=== PATIENT | male | born 1995 | race Caucasian/White ===

== ENCOUNTER 2022-03-10 16:06 | Emergency (ER) | payer SELFPAY ==
[2022-03-10 17:01] VITALS: TEMP 98.1; BMI 31.3
[2022-03-10] MEDS ORDERED: MIDAZOLAM HCL 2 MG/2 ML SINGLE DOSE VIAL IVPUSH ONE (17:09)
[2022-03-10] MEDS ORDERED: FAMOTIDINE 20 MG/50 ML IVPB 20 MG/50 ML MG IVPB ONE (17:11)
[2022-03-10] MEDS ORDERED: MAG HYDROX/AL HYDROX/SIMETH -MYLANTA- ORAL SUSPENSION PO ONE (17:11)
[2022-03-10] MEDS ORDERED: ONDANSETRON 4 MG TABLET PO ONE (17:12)
[2022-03-10] MEDS ORDERED: ACETAMINOPHEN 1000 MG/100 ML BAG IVPB ONE (17:12)
[2022-03-10] MEDS ORDERED: ONDANSETRON *ODT* 4 MG TABLET ONE (18:01)
[2022-03-10 18:46] LABS: HEMATOCRIT 46.8 % (35.4-49); HEMOGLOBIN 16.3 GM/dL (11.7-16.9); MCH 32.7 pg (25.7-33.7); MCHC 34.9 g/dl (32.0-35.9); MEAN CELL VOLUME 93.6 fl (80-96); MEAN PLT VOLUME 8.6 fl (7.5-11.1); PLATELET COUNT 286 10^3/uL (134-434); RDW 12.7 % (11.9-15.9); WHITE BLOOD COUNT 7.4 K/mm3 (4.0-10.0)
[2022-03-10] MEDS ORDERED: MAG HYDROX/AL HYDROX/SIMETH 30 ML UNIT-DOSE CUP ONE (19:08)
[2022-03-10 19:09] LABS: ALBUMIN 4.2 g/dl (3.4-5.0); CALCIUM 9.5 mg/dL (8.5-10.1)
[2022-03-10 19:10] LABS: BLOOD UREA NITROGEN 14.6 mg/dL (7-18)
[2022-03-10 19:12] LABS: CREATININE 0.8 mg/dL (0.55-1.3)
[2022-03-10 19:14] LABS: TOT PROT 8.5 g/dl (6.4-8.2)
[2022-03-10 19:18] LABS: BILIRUBIN,TOTAL 0.3 mg/dL (0.2-1)
[2022-03-10] MEDS ORDERED: SUCRALFATE 1 GM/10 ML UNIT DOSE CUPS PO ONE (22:56)
[2022-03-11 00:32] VITALS: BP 122/69; PULSE 82; RESP 18
== END 2022-03-11 00:32 | disposition home or self-care (01) ==
LOC: JER 16:06
PROC: 3E0333Z Introduction of Anti-inflammatory into Peripheral Vein, Percutaneous Approach (ICD-10-PCS; principal; 2022-03-10)
PROC: 3E033GC Introduction of Other Therapeutic Substance into Peripheral Vein, Percutaneous Approach (ICD-10-PCS; 2022-03-10)
DX: R07.9 Chest pain, unspecified (principal)
CPT/HCPCS: 36415; 71046-TC-FY; 71275-TC; 80053; 83690; 84484; 85027; 93005; 93010; 99285-25